=== PATIENT | female | born 1970 | race Caucasian/White ===

== ENCOUNTER 2023-12-15 12:18 | Emergency (ER) | payer OTHER, SELFPAY ==
[2023-12-15 12:21] VITALS: BP 135/105
[2023-12-15 12:33] VITALS: BMI 19.5
[2023-12-15 12:55] LABS: % Basophils 0.9 % (0-2); % Immature Granulocytes 0.9 % (0-0.5); % Lymphocytes 41.3 % (20.5-51.1); % Monocytes 19.3 % (1.7-9.3); % Neutrophils 33.6 % (42.2-75.2); Absolute Eosinophils 0.1 10^3/uL (0-0.7); Absolute Lymphocytes 0.9 10^3/uL (1.2-3.4); Absolute Monocytes 0.4 10^3/uL (0.1-0.6); Hematocrit 36.2 % (37.0-47.0); Hemoglobin 12.9 g/dL (12.0-16.0); Mean Corp Hgb Conc. 35.6 g/dL (33.0-37.0); Mean Corpuscular Hgb 30.1 pg (27.0-31.0); Mean Corpuscular Volume 84.6 fL (81.0-99.0); Mean Platelet Volume 11.9 fL (7.4-10.4); Nucleated Red Blood Cells % 0 %; Platelet Count 135 10^3/uL (130-400); Red Blood Cell Count 4.28 10^6/uL (4.20-5.40); Red Cell Dist. Width 12.3 % (11.5-14.5)
[2023-12-15 13:00] VITALS: BP 127/61
[2023-12-15 13:02] LABS: ALT (SGPT) 16 U/L (0-35); AST (SGOT) 26 U/L (14-36); Albumin 3.6 g/dl (3.5-5.0); Alkaline Phosphatase 72 U/L (38-126); Blood Urea Nitrogen 11 mg/dl (7-17); Calcium 8.8 mg/dl (8.4-10.2); Carbon Dioxide 28 mmol/L (22-30); Chloride 102 mmol/L (98-107); Estimated Creatinine Clearance 85 ml/min; Glucose 85 mg/dl (70-99); Potassium 4.2 mmol/L (3.5-5.1); Sodium 133 mmol/L (135-145); Total Bilirubin 0.5 mg/dl (0.2-1.3); eGFR > 60.00
[2023-12-15 13:05] LABS: White Blood Cell Count 2.2 10^3/uL (4.8-10.8)
[2023-12-15] MEDS: NSS 1000 IV (13:10)
--- NOTE | 2023-12-15 13:19 | ED.GENMED ---
History of Present Illness
General
Chief Complaint: Fatigue
Source: patient
Exam Limitations: none
Time Seen by Provider: 12/15/23 12:25
Travel History
Have you had any contact with someone who has COVID-19?: No
Do you have any symptoms of coronavirus? Fever > 100 degrees, chills, cough, shortness of breath, sore throat, loss of taste or smell, muscle aches, or headache?: No
History of Present Illness
History of Present Illness:
53-year-old otherwise healthy female presents with progressively worsening fatigue over the past 5 days. She started with an illness cough shortness of breath and wheeze. She was presumed to have viral bronchitis. COVID test and flu test were
negative earlier this week. Her symptoms persisted and family doctor started on Zithromax given her propensity to develop pneumonia. She notes today she is more fatigued and lightheaded. Had a near syncopal episode at the doctor's office and was
sent here for evaluation. She has had a good appetite. She denies any vomiting. No diarrhea. No known sick contacts.
Past History
Past History
ED Past Medical History: Other
ED Past Surgical History: Tonsilectomy
Social History
Tobacco: Non-smoker
Alcohol: None
Drug: None
Personal:
Living: with family
Employment: Employed
Family History
Family History: Hypertension
Phy Exam
Physical Exam
Physical Exam:
General: Well-appearing female no acute respiratory distress
HEENT normocephalic mucosa dry
Heart: Regular rate and rhythm
Lungs: Clear no obvious wheeze or rales
Abdomen: Soft nontender
Extremities: No cyanosis
Course
Orders/Labs/Results
Orders:
Orders
12/15/23 12:35
CMP [Comprehensive Metabolic Panel] Urgent
Complete Blood Count/With Diff Urgent
12/15/23 13:03
COVID-19 Antigen Urgent
Source: Nasal Swab
Influenza A+B Rapid Molecular Urgent
YOLANDA Source: Nasal Swab
Specimen Description:
12/15/23 13:05
0.9% Sodium Chloride 1000 ml [Nss] 1,000 ml IV BOLUS
12/15/23 13:10
CR Chest - 2 Views Urgent
Comment:
Reason For Exam: fatigue, cough
Abnormal Lab Results
12/15/23
12:35
WBC 2.2 L* 10^3/uL
(4.8-10.8)
Hct 36.2 L %
(37.0-47.0)
MPV 11.9 H fL
(7.4-10.4)
Absolute Neuts (auto) 0.8 L* 10^3/uL
(1.4-6.5)
Absolute Lymphs (auto) 0.9 L 10^3/uL
(1.2-3.4)
Immature Gran % 0.9 H %
(0-0.5)
Neutrophils % 33.6 L %
(42.2-75.2)
Monocytes % 19.3 H %
(1.7-9.3)
Sodium 133 L mmol/L
(135-145)
Total Protein 6.0 L g/dl
(6.3-8.2)
12/15/23 12:35
12/15/23 12:35
Vital Signs
Initial and Last Documented VS:
Initial Vital Signs
Pulse Resp BP Pulse Ox
57 18 135/105 100
12/15/23 12:21 12/15/23 12:21 12/15/23 12:21 12/15/23 12:21
Last Documented Vital Signs
Pulse Resp BP Pulse Ox
68 14 123/70 100
12/15/23 15:15 12/15/23 15:15 12/15/23 15:00 12/15/23 14:37
MDM/Problems Addressed
Differential Diagnosis Includes:
Fatigue lightheaded with recent respiratory illness. Check for COVID and flu. Concern for electrolyte abnormality or dehydration. Fluids ordered chest x-ray pending. Labs pending.
*Critical Care Note
Total Time (30-74mins, 75-104mins- exclusive of procedures): Not Applicable
Update Note
Update Note:
Patient tested positive for flu. Chest x-ray clear. White blood cell count low absolute neutrophil count is low as well. Suspect related to viral illness. Recommended continued hydration and fever control at home. Patient feeling better. She
has ambulated to the bathroom without difficulty. Stable for discharge
ED Attending Note
-
Portions of this chart may have been created with voice recognition software.� Occasional wrong word or��sound alike� substitutions may have occurred due to the inherent limitations of voice recognition software.
Discharge Plan
Departure
Patient Disposition: Home (Routine Discharge)
Date of Disposition: 12/15/23
Time of Disposition: 15:20
Patient with high blood pressure during this ER visit?: No
Discharge Problem:
Influenza
Instructions: Flu, Child ED
Prescriptions:
No Action
lorazepam 0.5 MG tablet
1 tab PO DAILY
lamotrigine 100 MG tablet
1 tab PO DAILY
Biotin
1 tab PO DAILY
medroxyprogesterone [Provera] 10 mg tablet
10 mg PO DAILY 9 Days Qty: 9 0RF
Referrals:
Marty Valle MD [Family Provider] -
Stand Alone Forms: Return to Work
Activity Restrictions/Additional Instructions:
Rest. Stay hydrated. Use ibuprofen or Tylenol for fever control. Follow-up with family doctor for recheck of blood work next week. Return if needed otherwise
Interventions
Interventions:
*Risk Screen - Suicide Last Done: 12/15/23 12:21
*General Assessment Last Done: 12/15/23 12:21
*Neglect/Abuse Screening Last Done: 12/15/23 12:33
ED- Fall Risk Assessment Last Done: 12/15/23 13:24
*ED COVID-19 Vaccine History Last Done: 12/15/23 12:33
*Nursing Disposition Last Done: 12/15/23 16:29
Discharge Date and Time
Discharge Date/Time: 12/15/23 16:29
[2023-12-15 13:28] LABS: COVID-19 Antigen Negative (Negative)
[2023-12-15 14:12] LABS: Absolute Neutrophils 0.8 10^3/uL (1.4-6.5)
[2023-12-15 14:35] VITALS: BP 102/62
[2023-12-15 15:00] VITALS: BP 123/70
== END 2023-12-15 16:29 | disposition home or self-care (01) ==
LOC: EMR 12:18
PROVIDERS: EMERGENCY PHYSICIAN Emergency Medicine; FAMILY PHYSICIAN Family Medicine
DX: J10.1 Influenza due to other identified influenza virus with other respiratory manifestations (principal); D72.819 Decreased white blood cell count, unspecified; Z11.52 Encounter for screening for COVID-19
CPT/HCPCS: 99284; 96360; 71046; 80053; 85025; 87502; 87811

== ENCOUNTER → 2024-08-04 14:35 | Outpatient (REF) | payer OTHER, SELFPAY | LOC: WDC 14:35 | PROVIDERS: ATTENDING PHYSICIAN Obstetrics & Gynecology Gynecology; FAMILY PHYSICIAN Family Medicine | DX: Z12.31 Encounter for screening mammogram for malignant neoplasm of breast (principal) | CPT/HCPCS: 77063; 77067 ==

== ENCOUNTER → 2024-10-16 09:35 | Outpatient (REF) | payer OTHER, SELFPAY | LOC: WDC 09:35 | PROVIDERS: ATTENDING PHYSICIAN Family Medicine | DX: N63.21 Unspecified lump in the left breast, upper outer quadrant (principal) | CPT/HCPCS: 76642; 77061; 77065 ==

== ENCOUNTER 2025-03-10 06:12 | Day surgery (SDC) | payer OTHER, SELFPAY ==
--- NOTE | 2025-03-06 12:34 | PTCARENOTE ---
PT REPORTS ADVERSE REACTION: CHF/ ACUTE MYOCARDITIS TO ANESTHESIA THAT HAPPENED W/TONSILLECTOMY 12/11/2019; PT WAS HOSPITALIZED FOR 10 DAYS. LAURIE QUISPE/ANESTHESIA COORDINATOR NOTIFIED. NO FURTHER ORDERS AT THIS TIME.
[2025-03-10] VITALS (9 sets, daily range): BP systolic 12–116; BP diastolic 45–87; BMI 20.6
[2025-03-10] MEDS: NORMOSOL-R/PLASMALYTE-A 1000 IV (11:15)
[2025-03-10] MEDS: TYLENOL 1000 MG PO (11:36)
== END 2025-03-10 16:45 | disposition home or self-care (01) ==
LOC: SDS 06:12
PROVIDERS: ATTENDING PHYSICIAN Surgery; FAMILY PHYSICIAN Family Medicine
DX: N63.21 Unspecified lump in the left breast, upper outer quadrant (principal); D17.1 Benign lipomatous neoplasm of skin and subcutaneous tissue of trunk; Z85.820 Personal history of malignant melanoma of skin
CPT/HCPCS: 19120; 88305; L8000